=== PATIENT | male | born 1955 | race Caucasian/White ===

== ENCOUNTER 2025-02-09 13:45 | Outpatient (RCR) | payer OTHER, SELFPAY ==
--- NOTE | 2025-01-14 13:12 | ST.OPIE ---
Visit Care Team Role Provider Type Kimi Ash Attending Provider Non-Staff Family Provider Primary Care Provider Referring Provider Specialty: Internal Medicine Address: [address] [place], [address] Fax: Email: Speech-Language Pathology Initial Evaluation COMMERCIAL ACCOUNTANT Adult Cognitive Linguistic Eval Start: 01/14/25 12:29 Freq: Status: Active Protocol: Document 01/14/25 12:29 SS (Rec: 01/14/25 13:12 SS Desktop) Adult Cognitive Linguistic Evaluation Session Time Visit Start Time 11:35 Visit Stop Time 12:25 Total Visit Minutes 50 Visit Information Visit Number Initial evaluation Plan of Care Dates 01/14/25-04/16/25 Insurance Information [employer] PPO (max 100 PT/OT/ST) Referral Referring Provider Kimi Ash MD Reason for Referral s/p CVA Setting Assessment Location Outpatient Care Visit Type Note Type Initial evaluation Next Note Type Next Note Type Treatment Note Patient Information Identification Type Name Patient History Rodríguez Regan is a 69-year-old male, referred for a speech/ language/cognition evaluation by Kimi Ash MD due to concerns regarding symptoms of cognitive difficulty s/p CVA. Pt arrived to the evaluation on time and was accompanied by his spouse, Alysia. Pt was engaged throughout. No medical records available at time of evaluation. COMMERCIAL ACCOUNTANT to reach out to [employer] to obtain pertinent records. Pt reported he lives with his spouse. 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 He was hospitalized at [facility] for four days. A week following discharge, he was urged to return by his neurologist, d/t concerns about his blood pressure and further symptoms. Pt also has heart issues, though pt and spouse did not provide specifics. Pt and spouse reported cognitive- communication changes from baseline following CVA. 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 Pt and spouse cannot recall details. Subjective Patient Report Pt?s Observations/Concerns: Pt endorsed word-finding and memory difficulty. He endorsed becoming distracted easily when speaking or completing tasks. He denied difficulty understanding communication partners, however, endorses communication difficulty. He denied changes to voice or swallowing Family Observations/Concerns: Pt?s spouse reported that pt speaks less and the loudness of his speech varies, though is uncertain if this has increased since the CVA. She also reported difficulty with forgetting when appointments are, checking email regularly, and completing routine chores . Additionally, she expressed reduced initiation with baseline activities as well as increased dependence on her assistance for more complex cognitive tasks, such as financial specialist and running errands. 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 Utilizes pillbox. Handy Worker: independent, but makes occasional errors. Household Management: dependent on prompting from spouse. Reduced initiation with routine tasks. Driving: Spouse completes. Running Errands: with assistance from spouse due to executive function difficulties. Hobbies: reduced interest per spouse report. Mental Status Alert,Responsive,Cooperative Informal Assessment Receptive Language Normal Yes Expressive Language Normal Yes Pragmatic Language Normal Yes Speech Normal Yes Cognition Normal No Cognitive Impairment(s) Attention,Short-term memory, Executive functioning,Problem solving,Reasoning,Thought organization Formal Assessment Standardized Test/Screener Type Cognitive Linguistic Quick Test (CLQT) Administration Initiated Results The Cognitive Linguistic Quick Test (CLQT) was administered to obtain information regarding the pt?s cognitive abilities. The CLQT assesses five cognitive domains: attention, memory, executive functioning, language, and visuospatial skills. A domain and severity rating is calculated. Scores fall within a WNL and severe range describing a pt?s level of impairment. Additionally, a composite severity range is calculated. A score of 3.5-4. 0 is WNL, 2.5-3.4 is mild, 1.5 -2.4 is moderate, and 1.0-1.4 is severe. The CLQT was initiated on this date. The pt scored as follows: Personal Facts: 04/17 Symbol Cancelation: 08/21 Confrontation Namin/10 Clock Drawin/13 Story Retellin/10 Unable to provide domain and severity ratings or composite severity range as pt did not complete the full examination. Plan to complete full examination in following session. Pt displayed at least mild impairment in the memory domain. During the story memory task, the pt was read a story and asked to recall as many details as possible. He recalled 10/18 details. He required additional time to think during this task, with little to no improvement in recall. Pt was then asked yes/ no questions regarding the details in the story and responded to 5/6 accurately. He stated he was unsure of several of the responses and required additional time to think of the response. Pt exhibited WFL ability in the language domain. During the picture naming task, the he accurately named all items. Semantic fluency task, not completed yet. However, during unstructured conversation, he demonstrated frequent instances of anomia, which is consistent with his spouse?s report. Attention appeared to be WFL and pt did not appear to have difficulty with sustained attention during completed tasks. Alternating not yet assessed, though informally appeared reduced. 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 Pt is at elevated risk of making critical errors with tasks such as medication management, financial specialist, and completion of research specialist , as well as everyday tasks that require adequate skills in the areas of attention, immediate and delayed memory, and executive functioning. Pt? s spouse expresses that due to his cognitive-communication impairments, he has difficulty participating in baseline IADLs. Word-finding difficulty in conversation has impacted his communication with family, medical providers, and at the workplace. This has resulted in communication breakdowns at home and at the workplace. 1:[address] with the goal of providing therapeutic education and training in use of potentially beneficial cognitive- communication compensatory strategies, specifically targeting attention and immediate and delayed memory for improved safety and independence in the home and return to the workplace. Also recommend treatment targeting word-finding for improved communication with family, friends, and members of the medical team to prevent communication breakdowns. Pt may benefit from education and training in internal and external compensatory strategies for memory, training in Semantic Feature Analysis (SFA) for improved word-finding and use of compensatory strategy of circumlocution, and education in holistic lifestyle factors supported by research to have a positive impact on cognition . Prognosis for improvement is good due to pt motivation and strong support from the pt's family. Plan for pt to participate in ST skilled services addressing cognitive- communication at a frequency of 1x/week for 8-12 weeks, to be further informed once CLQT is completed. COMMERCIAL ACCOUNTANT provided education re: the role of the COMMERCIAL ACCOUNTANT in speech, language, and cognitive-communication therapy. Educated pt and family re: goals for therapy and facilitated discussion re: collaborative goals for treatment. Pt and spouse expressed understanding of education provided on this date. Concomitant Factors Concomitant Factors Other (comment) Comment Reduced awareness and initiation Prognosis Prognosis Good Based on Family support,Comorbidities Plan of Care Speech-Language Treatment Yes Frequency 1x/week Duration 2-3 months Patient/Caregiver Education Described results of evaluation,Patient expressed understanding of evaluation, Patient expressed agreement with goals and treatment plans ,Family/caregivers expressed understanding of evaluation, Family/caregivers expressed agreement with goals and treatment plan Short Term Goals 1. Patient will be educated about holistic lifestyle factors that are supported by research to have a positive impact on cognition (ex: sleep , exercise, diet, social engagement) and will demonstrate understanding via teach-back. 2. Patient will explore external compensatory strategies through education and application, in order to select 1-2 that are a best fit for daily needs (ex: calendar and writing lists). 3. Patient will participate in internal memory strategy (ex: visualization and rehearsal) education and training, in order to select 1-2 that are best fit for daily needs. 4. Patient will implement compensatory strategies for word-finding (such as circumlocution) with 80% accuracy with minimal cueing to repair communication breakdowns in daily conversations. 5. Patient will complete The Cognitive Linguistic Quick Test (CLQT) to further inform POC. Intermediate Goals 1. Patient will complete cognitive communication tasks with independent use of strategies or tools as needed to complete baseline tasks without difficulty. 2. Patient will demonstrate improved memory confidence, compared to baseline of 02/17, through memory education, adaptation, and application to real life.
--- NOTE | 2025-01-14 13:12 | ST.OPPOC ---
Physical, Occupational & Speech Therapy At [facility] Visit Care Team Role Provider Type Kimi Ash Attending Provider Non-Staff Family Provider Primary Care Provider Referring Provider Address: [place], [address] Fax: Speech Pathology Plan of Care Plan of Care Dates 01/14/25-04/16/25 Referring Provider Kimi Ash MD Patient History Rodríguez Regan is a 69-year-old male, referred for a speech/language/cognition evaluation by Kimi Ash MD due to concerns regarding symptoms of cognitive difficulty s/p CVA. Pt arrived to the evaluation on time and was accompanied by his spouse, Alysia. Pt was engaged throughout. No medical records available at time of evaluation. DENTAL EQUIPMENT TECHNICIAN to reach out to [employer] to obtain pertinent records. Pt reported he lives with his spouse. 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 He was hospitalized at [facility] for four days . A week following discharge, he was urged to return by his neurologist, d/t concerns about his blood pressure and further symptoms. Pt also has heart issues, though pt and spouse did not provide specifics. Pt and spouse reported cognitive-communication changes from baseline following CVA. Short Term Goals 1. Patient will be educated about holistic lifestyle factors that are supported by research to have a positive impact on cognition (ex: sleep, exercise, diet, social engagement) and will demonstrate understanding via teach-back. 2. Patient will explore external compensatory strategies through education and application, in order to select 1-2 that are a best fit for daily needs (ex: calendar and writing lists). 3. Patient will participate in internal memory strategy (ex: visualization and rehearsal) education and training, in order to select 1-2 that are best fit for daily needs. 4. Patient will implement compensatory strategies for word-finding (such as circumlocution) with 80% accuracy with minimal cueing to repair communication breakdowns in daily conversations. 5. Patient will complete The Cognitive Linguistic Quick Test (CLQT) to further inform POC. Manager Case Management Goals 1. Patient will complete cognitive communication tasks with independent use of strategies or tools as needed to complete baseline tasks without difficulty. 2. Patient will demonstrate improved memory confidence, compared to baseline of 02/17, through memory education, adaptation, and application to real life. Comment: Electronically Signed by: ABDI Bob 01/14/25 [id number] If you are in agreement with this Plan of Care, please return a signed and dated copy. I have reviewed this Plan of Care and certify that the skilled therapy services above are required to meet the patient?s needs. Physician Signature Date Printed Name and Credentials Clinical Instructor Signature Printed Name and Credentials
--- NOTE | 2025-01-14 13:57 | ST-OP ANOTE ---
Physical, Occupational & Speech Therapy At [facility] Speech Therapy Note POC sent to PCP, Kimi Ash MD, via [employer]Fax, requesting signature if in agreement.
--- NOTE | 2025-01-21 14:10 | ST.OPTN ---
Visit Care Team Role Provider Type Kimi Ash Attending Provider Non-Staff Family Provider Primary Care Provider Referring Provider Address: [address] [place], [address] Fax: ENTRY LEVEL ACCOUNTANT Treatment Note ENTRY LEVEL ACCOUNTANT Treatment Note Start: 01/14/25 12:29 Freq: Status: Active Protocol: Document 01/21/25 13:57 SS (Rec: 01/21/25 14:10 SS Desktop) Speech Pathology Treatment Note Session Time Visit Start Time 11:30 Visit Stop Time 12:15 Total Visit Minutes 45 Visit Information Visit Number 2 Plan of Care Dates 01/14/25-04/16/[address] [facility] Setting Treatment Setting Outpatient Care Visit Type Note Type Treatment Note Next Note Type Next Note Type Treatment Note General Information Patient History Rodríguez Regan is a 69-year-old male, referred for a speech/ language/cognition evaluation by Kimi Ash MD due to concerns regarding symptoms of cognitive difficulty s/p CVA. Pt arrived to the evaluation on time and was accompanied by his spouse, Alysia. Pt was engaged throughout. No medical records available at time of evaluation. ENTRY LEVEL ACCOUNTANT to reach out to [facility] to obtain pertinent records. Pt reported he lives with his spouse. 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 He was hospitalized at [facility] for four days. A week following discharge, he was urged to return by his neurologist, d/t concerns about his blood pressure and further symptoms. Pt also has heart issues, though pt and spouse did not provide specifics. Pt and spouse reported cognitive- communication changes from baseline following CVA. Subjective Observations/Patient Presentation Rodríguez arrived to the session on time and was accompanied by his . He was engaged and motivated throughout the session. Objective Short Term Goals 1. Patient will be educated about holistic lifestyle factors that are supported by research to have a positive impact on cognition (ex: sleep , exercise, diet, social engagement) and will demonstrate understanding via teach-back. 2. Patient will explore external compensatory strategies through education and application, in order to select 1-2 that are a best fit for daily needs (ex: calendar and writing lists). 3. Patient will participate in internal memory strategy (ex: visualization and rehearsal) education and training, in order to select 1-2 that are best fit for daily needs. 4. Patient will implement compensatory strategies for word-finding (such as circumlocution) with 80% accuracy with minimal cueing to repair communication breakdowns in daily conversations. 5. Patient will complete The Cognitive Linguistic Quick Test (CLQT) to further inform POC. Shift Engineer Goals 1. Patient will complete cognitive communication tasks with independent use of strategies or tools as needed to complete baseline tasks without difficulty. 2. Patient will demonstrate improved memory confidence, compared to baseline of 02/17, through memory education, adaptation, and application to real life. Treatment Activities Completed The Cognitive Linguistic Quick Test (CLQT). Discussed communication strategies and external aids for memory at the end of the session. Pt provided an FMLA form for ENTRY LEVEL ACCOUNTANT to complete and return at next session. Assessment Patient Response to Treatment Good Rehab Potential Good Impairments Identified Cognitive communication Progress Towards Goals Good Progress Assessment of Overall Progress Improving Assessment of Improvement Pt completed the CLQT, which was initiated during the evaluation. He scored as follows: Attention: 173 Mild impairment Memory: 159 WNL Executive Functions: 22 Mild impairment Visuospatial Skills: 78 Mild impairment Clock Drawin Mild impairment Composite Severity Range: 3.4 Mild cognitive-communication impairment Towards the end of the session , ENTRY LEVEL ACCOUNTANT facilitated discussion re: current observations and concerns by pt and his spouse. Pt expressed he had no particular concerns, though his awareness of his own deficits appears to be limited based on spouse reports. His spouse expressed that his processing time, particularly during conversations in-person or on the phone, appears to be delayed. Additionally, he often perseverated on particular things he cannot remember, such as time of appointments and to-do tasks. In conversation, recommended pt confirm information he hears to ensure accurate comprehension as well as take notes as he is able to follow the conversation flow better. Also discussed use of self- advocacy statement and prefacing conversations with brief explanation of CVA history and need for listener to slow down and be patient. Pt expressed understanding and his spouse explained she will try to remind him to utilize these strategies. Additionally , recommended pt refer to calendar when he is unsure of time/date of appointments and begin to use of daily to-do list. Pt?s spouse was highly supportive of pt beginning to use these strategies and wrote them down for improved recall . Plan to discuss assessment results and follow up on use of recommended tools and strategies in next session. Continue at frequency of once a week given pt progress and report. Reviewed with Patient Goals,Home Exercise Program Patient/Caregiver Understanding Good Plan Amount of Therapy Recommended 3 Months Frequency of Treatment Once a Week Length of Session 30 Minutes Therapeutic Contents Client Education,Cognitive- Linguistic Training,Home Exercise Program Provided Patient/Caregiver Instruction Home Exercise Program,Plan of Care,Questions/Concerns Therapy Recommendations Continue with Current Program
--- NOTE | 2025-01-26 16:11 | ST.OPTN ---
Visit Care Team Role Provider Type Kimi Ash Attending Provider Non-Staff Family Provider Primary Care Provider Referring Provider Address: [address] [place], [address] Fax: BODY MASKER Treatment Note BODY MASKER Treatment Note Start: 01/14/25 12:29 Freq: Status: Active Protocol: Document 01/26/25 16:02 SS (Rec: 01/26/25 16:11 SS Desktop) Speech Pathology Treatment Note Session Time Visit Start Time 13:45 Visit Stop Time 14:30 Total Visit Minutes 45 Visit Information Visit Number 3 Plan of Care Dates 01/14/25-04/16/25 Insurance Information [facility] Setting Treatment Setting Outpatient Care Visit Type Note Type Treatment Note Next Note Type Next Note Type Treatment Note General Information Patient History Rodríguez Regan is a 69-year-old male, referred for a speech/ language/cognition evaluation by Kimi Ash MD due to concerns regarding symptoms of cognitive difficulty s/p CVA. Pt arrived to the evaluation on time and was accompanied by his spouse, Alysia. Pt was engaged throughout. No medical records available at time of evaluation. BODY MASKER to reach out to [facility] to obtain pertinent records. Pt reported he lives with his spouse. 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 He was hospitalized at [facility] for four days. A week following discharge, he was urged to return by his neurologist, d/t concerns about his blood pressure and further symptoms. Pt also has heart issues, though pt and spouse did not provide specifics. Pt and spouse reported cognitive- communication changes from baseline following CVA. Subjective Observations/Patient Presentation Rodríguez arrived to the session on time and was accompanied by his . She was present for part of the session. He was engaged and motivated throughout the session. Objective Short Term Goals 1. Patient will be educated about holistic lifestyle factors that are supported by research to have a positive impact on cognition (ex: sleep , exercise, diet, social engagement) and will demonstrate understanding via teach-back. 2. Patient will explore external compensatory strategies through education and application, in order to select 1-2 that are a best fit for daily needs (ex: calendar and writing lists). 3. Patient will participate in internal memory strategy (ex: visualization and rehearsal) education and training, in order to select 1-2 that are best fit for daily needs. 4. Patient will implement compensatory strategies for word-finding (such as circumlocution) with 80% accuracy with minimal cueing to repair communication breakdowns in daily conversations. 5. Patient will complete The Cognitive Linguistic Quick Test (CLQT) to further inform POC. Group Home Goals 1. Patient will complete cognitive communication tasks with independent use of strategies or tools as needed to complete baseline tasks without difficulty. 2. Patient will demonstrate improved memory confidence, compared to baseline of 02/17, through memory education, adaptation, and application to real life. Treatment Activities Completed [facility] paperwork as requested by pt. Provided education re: attention and executive functioning compensatory strategies during IADLs. Provided handouts with further education Assessment Patient Response to Treatment Good Rehab Potential Good Impairments Identified Cognitive communication Progress Towards Goals Good Progress Assessment of Overall Progress Improving Assessment of Improvement Facilitated discussion re: pt observations and concerns. Pt reported remaining concerns during tasks that he used to be able to complete easily, such as fixing household appliances. BODY MASKER discussed the following strategies with pt: reducing environmental distractions, reducing internal distractions, pacing and taking breaks, breaking down larger tasks into manageable parts and writing steps down. Pt expressed understanding and stated he will implement these strategies. Additionally, recommended modifying an activity so that it takes less energy, postponing an activity to another day, delegating one or more activities to someone else ( friend, family, delivery, or other paid help), and prioritizing tasks. Discussed importance of managing cognitive capacity, particularly with cognitively taxing and demanding tasks. Pt expressed understanding and stated he will report on progress in next session. BODY MASKER facilitated discussion re: role of attention with metaphor of blocks in the brain being available for storage of new information; however, if individual is not attending to information, it will never be stored and won't be easily retrieved at later time. Additionally, BODY MASKER facilitated discussion re: impact of mental health, distractions, stress, and fatigue on cognitive function with metaphor of external factors filling the blocks in your brain that you'd otherwise have open for new information. Plan to continue targeting attention, memory, and executive functioning strategies in next session. Introduce spoon theory if pt receptive. Continue at frequency of once a week given pt progress and report. Reviewed with Patient Goals,Home Exercise Program Patient/Caregiver Understanding Good Plan Amount of Therapy Recommended 3 Months Frequency of Treatment Once a Week Length of Session 30 Minutes Therapeutic Contents Client Education,Cognitive- Linguistic Training,Home Exercise Program Provided Patient/Caregiver Instruction Home Exercise Program,Plan of Care,Questions/Concerns Therapy Recommendations Continue with Current Program
--- NOTE | 2025-02-06 15:46 | ST.OPTN ---
Visit Care Team Role Provider Type Kimi Ash Attending Provider Non-Staff Family Provider Primary Care Provider Referring Provider Address: [address] [place], [address] Fax: POTTER OR CERAMIC ARTIST Treatment Note POTTER OR CERAMIC ARTIST Treatment Note Start: 01/14/25 12:29 Freq: Status: Active Protocol: Document 02/06/25 15:33 SS (Rec: 02/06/25 15:46 SS Desktop) Speech Pathology Treatment Note Session Time Visit Start Time 11:30 Visit Stop Time 12:05 Total Visit Minutes 35 Visit Information Visit Number 4 Plan of Care Dates 01/14/25-04/16/25 Insurance Information [facility] Setting Treatment Setting Outpatient Care Visit Type Note Type Treatment Note Next Note Type Next Note Type Treatment Note General Information Patient History Rodríguez Regan is a 69-year-old male, referred for a speech/ language/cognition evaluation by Kimi Ash MD due to concerns regarding symptoms of cognitive difficulty s/p CVA. Pt arrived to the evaluation on time and was accompanied by his spouse, Alysia. Pt was engaged throughout. No medical records available at time of evaluation. POTTER OR CERAMIC ARTIST to reach out to [facility] to obtain pertinent records. Pt reported he lives with his spouse. 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 He was hospitalized at [facility] for four days. A week following discharge, he was urged to return by his neurologist, d/t concerns about his blood pressure and further symptoms. Pt also has heart issues, though pt and spouse did not provide specifics. Pt and spouse reported cognitive- communication changes from baseline following CVA. Subjective Observations/Patient Presentation Rodríguez arrived to the session on time and was accompanied by his who accompanied him. He was engaged and motivated throughout the session. Objective Short Term Goals 1. Patient will be educated about holistic lifestyle factors that are supported by research to have a positive impact on cognition (ex: sleep , exercise, diet, social engagement) and will demonstrate understanding via teach-back. 2. Patient will explore external compensatory strategies through education and application, in order to select 1-2 that are a best fit for daily needs (ex: calendar and writing lists). 3. Patient will participate in internal memory strategy (ex: visualization and rehearsal) education and training, in order to select 1-2 that are best fit for daily needs. 4. Patient will implement compensatory strategies for word-finding (such as circumlocution) with 80% accuracy with minimal cueing to repair communication breakdowns in daily conversations. 5. Patient will complete The Cognitive Linguistic Quick Test (CLQT) to further inform POC. [facility] Goals 1. Patient will complete cognitive communication tasks with independent use of strategies or tools as needed to complete baseline tasks without difficulty. 2. Patient will demonstrate improved memory confidence, compared to baseline of 02/17, through memory education, adaptation, and application to real life. Treatment Activities Provided education re: holistic lifestyle factors that are supported by research to have a positive impact on cognition (ex: sleep, exercise , diet, social engagement) as well as impact of stress on cognitive function. Reviewed use of communication strategies to increase successful participation in conversations. Assessment Patient Response to Treatment Good Rehab Potential Good Impairments Identified Cognitive communication Progress Towards Goals Good Progress Assessment of Overall Progress Improving Assessment of Improvement Pt?s expressed some concerns about impact of upcoming open-heart surgery on overall cognitive function. POTTER OR CERAMIC ARTIST provided lifestyle education re: physical activity, social activity, sleep habits, hearing ability, hydration, and diet, and impacts on overall cognitive function. Specifically discussed benefits of good sleep habits, current sleep habits, and identified situations and ways that pt could change his sleep routine . Pt stated he is motivated to implement POTTER OR CERAMIC ARTIST recommendations . Given hearing concerns and pt not wearing hearing aids, explained benefits of adequate hearing ability and discussed how pt could address his hearing ability. Pt?s stated she will make an client care manager appointment following his surgery. Discussed implementation of strategies during cognitively demanding conversations (e.g., phone calls with medical providers). Pt expressed that he is now using a self- advocacy statement previously created with this POTTER OR CERAMIC ARTIST to explain his situation to less familiar communication partners. He has also been cognizant of asking communication partners to slow down or rephrase if he does not understand. He has started taking noted during conversations to improve recall, though admits he could do so more consistently and reference his notes after the conversation. Recommended pt reduce external distractions ( noise, multiple people speaking, etc) and external distractions. Also recommended pt try to have important conversations when he is minimally fatigued and stressed to increase effectiveness. Pt agreeable to these recommendations and will report ton progress in next session. Plan to continue targeting attention, memory, executive functioning, and communication strategies in next session. Continue at frequency of once a week given pt progress and report. Plan to discharge next session as pt will be having extensive surgery. Reviewed with Patient Goals,Home Exercise Program Patient/Caregiver Understanding Good Plan Amount of Therapy Recommended 3 Months Frequency of Treatment Once a Week Length of Session 30 Minutes Therapeutic Contents Client Education,Cognitive- Linguistic Training,Home Exercise Program Provided Patient/Caregiver Instruction Home Exercise Program,Plan of Care,Questions/Concerns Therapy Recommendations Continue with Current Program
--- NOTE | 2025-02-09 17:04 | ST.OPTN ---
Visit Care Team Role Provider Type Kimi Ash Attending Provider Non-Staff Family Provider Primary Care Provider Referring Provider Address: [address] [place], [address] Fax: YARD CONDUCTOR Treatment Note YARD CONDUCTOR Treatment Note Start: 01/14/25 12:29 Freq: Status: Active Protocol: Document 02/09/25 16:48 SS (Rec: 02/09/25 17:04 SS Desktop) Speech Pathology Treatment Note Session Time Visit Start Time 13:50 Visit Stop Time 14:20 Total Visit Minutes 30 Visit Information Visit Number 5 Plan of Care Dates 01/14/25-04/16/25 Insurance Information [facility] Setting Treatment Setting Outpatient Care Visit Type Note Type Treatment Note Next Note Type Next Note Type Discharge Summary General Information Patient History Rodríguez Regan is a 69-year-old male, referred for a speech/ language/cognition evaluation by Kimi Ash MD due to concerns regarding symptoms of cognitive difficulty s/p CVA. Pt arrived to the evaluation on time and was accompanied by his spouse, Alysia. Pt was engaged throughout. No medical records available at time of evaluation. YARD CONDUCTOR to reach out to [facility] to obtain pertinent records. Pt reported he lives with his spouse. 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 He was hospitalized at [facility] for four days. A week following discharge, he was urged to return by his neurologist, d/t concerns about his blood pressure and further symptoms. Pt also has heart issues, though pt and spouse did not provide specifics. Pt and spouse reported cognitive- communication changes from baseline following CVA. Subjective Observations/Patient Presentation Rodríguez arrived to the session on time and was accompanied by his who accompanied him. He was engaged and motivated throughout the session. Objective Short Term Goals 1. Patient will be educated about holistic lifestyle factors that are supported by research to have a positive impact on cognition (ex: sleep , exercise, diet, social engagement) and will demonstrate understanding via teach-back. 02/09/25: Goal met. 2. Patient will explore external compensatory strategies through education and application, in order to select 1-2 that are a best fit for daily needs (ex: calendar and writing lists). 02/09/25: Goal met. 3. Patient will participate in internal memory strategy (ex: visualization and rehearsal) education and training, in order to select 1-2 that are best fit for daily needs. 02/09/25: Goal discontinued. 4. Patient will implement compensatory strategies for word-finding (such as circumlocution) with 80% accuracy with minimal cueing to repair communication breakdowns in daily conversations. 02/09/25: Goal met. 5. Patient will complete The Cognitive Linguistic Quick Test (CLQT) to further inform POC. 02/09/25: Goal met. [facility] Goals 1. Patient will complete cognitive communication tasks with independent use of strategies or tools as needed to complete baseline tasks without difficulty. 02/09/25: Goal met. 2. Patient will demonstrate improved memory confidence, compared to baseline of 02/17, through memory education, adaptation, and application to real life. 02/09/25: Goal met. Treatment Activities Continued education re: external memory aids to increase independence and reduce errors with completion of IADLs. Reviewed use of communication strategies to increase successful participation in conversations . Discussed progress to date and completed discharge. Assessment Patient Response to Treatment Good Rehab Potential Good Impairments Identified Cognitive communication Progress Towards Goals Good Progress,Appropriate for Discharge Assessment of Overall Progress Improving Assessment of Improvement YARD CONDUCTOR facilitated discussion re: current observations and concerns. Pt reported he continues to implement previously trained communication strategies. He reported no communication breakdowns since the last session. He reported minimal word-finding difficulty, which was consistent with YARD CONDUCTOR?s observations. Reviewed word- finding strategies for pt to utilize as needed. Additionally, reviewed previously recommended external memory aids, such as use of calendar, daily to-do list, and taking notes during important phone calls and conversations. Pt expressed understanding of these strategies, though appears reluctant to implement them. He stated, ?I ask God what to do every day, and then I do it .? His spouse stated that pt appears to have reduced motivation/initiation with household tasks. She also reported perceived changes to hygiene and difficulty taking medications appropriately at times. Given that this is the pt?s last session before undergoing open heart surgery, YARD CONDUCTOR to discharge pt. Recommended he obtain a new referral as needed from PCP after he recovers from surgery if he would like to pursue further outpatient services, which he was agreeable to. Pt has been seen for 5 speech therapy visits addressing cognitive-communication in the setting of CVA since the start of care 01/14. He has attended at a frequency of once a week and has been motivated and engaged throughout. Treatment has included lifestyle education re: physical activity, social activity, sleep habits, hearing ability, hydration, and diet, and impacts on overall cognitive function. Pt was able to identify situations and ways that he could change and modify to optimize current habits. Additionally, treatment has included compensatory strategies targeting communication, word-finding, memory, and executive functioning. Pt has been able to implement multiple strategies effectively, though progress limited given short duration of treatment. Since the start of care, pt has improved in self-perception of cognitive-communication to a current perception of 8/10. He is able to complete more baseline IADLs independently, but continues to require e assistance from his spouse. The plan is to discharge the patient from speech therapy services due to upcoming extensive surgery and anticipated recovery. Recommend he request a referral from his PCP if he continues to note difficulties with cognitive-communication function. Pt agreeable to plan . Reviewed with Patient Goals,Home Exercise Program Patient/Caregiver Understanding Good Plan Amount of Therapy Recommended No Further Therapy Frequency of Treatment No Further Therapy Therapeutic Contents Client Education,Cognitive- Linguistic Training,Home Exercise Program Provided Patient/Caregiver Instruction Home Exercise Program,Plan of Care,Questions/Concerns Therapy Recommendations Discharge to Home Exercise Program,Discharge from Speech Therapy
== END 2025-02-10 10:13 | disposition home or self-care (01) ==
LOC: SP 13:45
PROVIDERS: Family Provider Internal Medicine; PCP Internal Medicine; Referring Provider Internal Medicine; Visit Provider Internal Medicine
DX: I69.328 Other speech and language deficits following cerebral infarction (principal); I69.398 Other sequelae of cerebral infarction
CPT/HCPCS: 92507; 96125

== ENCOUNTER 2025-04-28 13:45 | Outpatient (RCR) | payer OTHER, SELFPAY ==
--- NOTE | 2025-04-10 16:41 | ST.OPIE ---
Visit Care Team Role Provider Type Kimi Ash Family Provider Non-Staff Primary Care Provider Specialty: Internal Medicine Address: [address] [place], [address] Fax: Email: Sylvia Del Rio DO Attending Provider Non-Staff Referring Provider Specialty: Psychiatry Address: [address] [place], [address] Email: Speech-Language Pathology Initial Evaluation TECHNOLOGY DEVELOPMENT INTERN Adult Cognitive Linguistic Eval Start: 04/10/25 16:16 Freq: Status: Active Protocol: Document 04/10/25 16:17 SS (Rec: 04/10/25 16:41 SS Desktop) Adult Cognitive Linguistic Evaluation Session Time Visit Start Time 14:40 Visit Stop Time 15:20 Total Visit Minutes 40 Visit Information Visit Number Initial evaluation Plan of Care Dates 04/10/25-07/11/25 [facility] Information Referral Referring Provider Sylvia Del Rio DO Reason for Referral s/p CVA Setting Assessment Location Outpatient Care Visit Type Note Type Initial evaluation Next Note Type Next Note Type Treatment Note Patient Information Identification Type Name Patient History Pt was previously seen by this TECHNOLOGY DEVELOPMENT INTERN from 01/14/25 to . 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 Per prior evaluation: ?Rodríguez Regan is a 69-year-old male, referred for a speech/language/cognition evaluation by Kmii Ash MD due to concerns regarding symptoms of cognitive difficulty s/p CVA. Pt arrived to the evaluation on time and was accompanied by his spouse, Alysia. Pt was engaged throughout. No medical records available at time of evaluation. TECHNOLOGY DEVELOPMENT INTERN to reach out to [facility] to obtain pertinent records. Pt reported he lives with his spouse. 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 He was hospitalized at [facility] for four days. A week following discharge, he was urged to return by his neurologist, d /t concerns about his blood pressure and further symptoms. Pt also has heart issues, though pt and spouse did not provide specifics. Pt and spouse reported cognitive- communication changes from baseline following CVA.? 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 Pt and spouse cannot recall details. Subjective Patient Report Today, pt reported ongoing difficulty understanding others during complex conversations and on the phone. He also expressed reduced processing speed and short- term memory difficulties. He is completing IADLs independently and shares household responsibilities with is spouse. Pt did not pass his driving assessment with OT due to slowed visual and processing speed. He currently has a referral in place for OT. Mental Status Alert,Responsive,Cooperative Informal Assessment Receptive Language No Normal Receptive Language Comprehension of conversation Impairment(s) Expressive Language Yes Normal Pragmatic Language Yes Normal Speech Normal Yes Cognition Normal No Cognitive Impairment Attention,Short-term memory (s) Formal Assessment Standardized Test/ Cognitive Linguistic Quick Test (CLQT) Screener Type Administration Complete Results The Cognitive Linguistic Quick Test (CLQT) was administered to obtain information regarding the pt?s cognitive abilities. The CLQT assesses five cognitive domains: attention, memory, executive functioning, language, and visuospatial skills. A domain and severity rating is calculated. Scores fall within a WNL and severe range describing a pt?s level of impairment. Additionally, a composite severity range is calculated. A score of 3.5- 4.0 is WNL, 2.5-3.4 is mild, 1.5-2.4 is moderate, and 1 .0-1.4 is severe. The pt scored as follows: Attention: 186 within normal limits Memory: 171 within normal limits Executive Functions: 25 within normal limits Language: 33 within normal limits Visuospatial Skills: 84 within normal limits Clock Drawin within normal limits Composite Severity Ratin.0 within normal limits Findings/Results Language Function Within functional limits Cognitive Function Within functional limits Findings Given informal assessment and results from CLQT, the pt presents with within functional levels cognitive- communication function. Given pt report of difficulties with comprehension of information during phone conversations and short-term memory recall, pt will benefit from 1:[address] with the goal of providing therapeutic education and training in use of beneficial cognitive-communication compensatory strategies, specifically targeting attention and immediate and delayed memory for improved safety and independence in the home. Also recommend treatment targeting compensatory strategies for communication with family, friends, and members of the medical team to prevent communication breakdowns and increase comprehension. Prognosis for improvement is good due to pt motivation and strong support from the pt's family. Plan for pt to participate in skilled services addressing cognitive-communication at a frequency of 1x /week for 1-2 months. TECHNOLOGY DEVELOPMENT INTERN provided education re: the role of the TECHNOLOGY DEVELOPMENT INTERN in speech, language, and cognitive- communication therapy. Educated pt re: goals for therapy and facilitated discussion re: collaborative goals for treatment. Pt expressed understanding of education provided on this date. Plan to complete a patient reported outcome measure, such as The Communicative Participation Item Bank or Multifactorial Memory Questionnaire for better insight into pt's perception of his cognitive-communication challenges. Prognosis Prognosis Good Based on Cognitive status,Family support Plan of Care Speech-Language Yes Treatment Frequency 1x/week Duration 1-2 months Patient/Caregiver Described results of evaluation,Patient expressed Education understanding of evaluation,Patient expressed agreement with goals and treatment plans,Family/caregivers expressed understanding of evaluation,Family/caregivers expressed agreement with goals and treatment plan Short Term Goals 1. Patient will be educated about holistic lifestyle factors that are supported by research to have a positive impact on cognition (ex: sleep, exercise, diet , social engagement). 2. Patient will implement 2 new internal/external compensatory strategies for memory with successful results, per home program report. 3. Patient will increase metacognitive self-awareness as measured by accurately reflecting on task performance after completion in 90% of opportunities in order to increase insight and safety awareness. 4. Patient and family will receive education re: communication strategies and communication partner training and ways to support communication in order to improve pt ability to communicate needs and wants and understand complex information. Fpc Goals 1. Patient will complete cognitive communication tasks with independent use of strategies or tools as needed to complete baseline tasks without difficulty.
--- NOTE | 2025-04-10 16:41 | ST.OPPOC ---
Physical, Occupational & Speech Therapy At [facility] Visit Care Team Role Provider Type Kimi Ash Family Provider Non-Staff Primary Care Provider Address: [address] [place], [address] Fax: Sylvia Del Rio DO Attending Provider Non-Staff Referring Provider Address: [address] [place], [address] Speech Pathology Plan of Care Plan of Care Dates 04/10/25-07/11/25 Referring Provider Sylvia Del Rio DO Patient History Pt was previously seen by this DIRECTOR MEDICAL SURGICAL from 01/14/25 to 02/09/25. 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 Per prior evaluation: ?Rodríguez Regan is a 69-year-old male, referred for a speech/ language/cognition evaluation by Kimi Ash MD due to concerns regarding symptoms of cognitive difficulty s/p CVA. Pt arrived to the evaluation on time and was accompanied by his spouse, Alysia. Pt was engaged throughout. No medical records available at time of evaluation . DIRECTOR MEDICAL SURGICAL to reach out to [facility] to obtain pertinent records. Pt reported he lives with his spouse. 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 He was hospitalized at [facility] for four days. A week following discharge, he was urged to return by his neurologist, d/t concerns about his blood pressure and further symptoms. Pt also has heart issues, though pt and spouse did not provide specifics. Pt and spouse reported cognitive- communication changes from baseline following CVA.? Short Term Goals 1. Patient will be educated about holistic lifestyle factors that are supported by research to have a positive impact on cognition (ex: sleep, exercise, diet, social engagement). 2. Patient will implement 2 new internal/ external compensatory strategies for memory with successful results, per home program report. 3. Patient will increase metacognitive self- awareness as measured by accurately reflecting on task performance after completion in 90% of opportunities in order to increase insight and safety awareness. 4. Patient and family will receive education re: communication strategies and communication partner training and ways to support communication in order to improve pt ability to communicate needs and wants and understand complex information. Detention Goals 1. Patient will complete cognitive communication tasks with independent use of strategies or tools as needed to complete baseline tasks without difficulty. Comment: Electronically Signed by: ABDI Bob 04/10/25 [id number] If you are in agreement with this Plan of Care, please return a signed and dated copy. I have reviewed this Plan of Care and certify that the skilled therapy services above are required to meet the patient?s needs. Physician Signature Date Printed Name and Credentials Clinical Instructor Signature Printed Name and Credentials
--- NOTE | 2025-04-10 16:44 | ST-OP ANOTE ---
Physical, Occupational & Speech Therapy At [facility] Speech Therapy Note METAL STAMPER sent POC to referring provider, Sylvia Del Rio DO, via [employer]ax. Requested signature if in agreement.
--- NOTE | 2025-04-14 16:00 | ST.OPTN ---
Visit Care Team Role Provider Type Kimi Ash Family Provider Non-Staff Primary Care Provider Address: [address] [place], [address] Fax: Sylvia Del Rio DO Attending Provider Non-Staff Referring Provider Address: [address] [place], [address] STRATEGIC ACCOUNT EXECUTIVE Treatment Note STRATEGIC ACCOUNT EXECUTIVE Treatment Note Start: 04/10/25 16:16 Freq: Status: Active Protocol: Document 04/14/25 13:37 SS (Rec: 04/14/25 13:44 SS Desktop) Speech Pathology Treatment Note Session Time Visit Start Time 11:25 Visit Stop Time 12:00 Total Visit Minutes 35 Visit Information Visit Number 2 Plan of Care Dates 04/10/25-07/11/25 Insurance [facility] (max 100 PT/OT/ST) Information Setting Treatment Setting Outpatient Care Visit Type Note Type Treatment Note Next Note Type Next Note Type Treatment Note General Information Patient History Pt was previously seen by this STRATEGIC ACCOUNT EXECUTIVE from 01/14/25 to . 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 Per prior evaluation: ?Rodríguez Regan is a 69-year-old male, referred for a speech/language/cognition evaluation by Kimi Ash MD due to concerns regarding symptoms of cognitive difficulty s/p CVA. Pt arrived to the evaluation on time and was accompanied by his spouse, Alysia. Pt was engaged throughout. No medical records available at time of evaluation. STRATEGIC ACCOUNT EXECUTIVE to reach out to [employer] to obtain pertinent records. Pt reported he lives with his spouse. 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 He was hospitalized at [facility] for four days. A week following discharge, he was urged to return by his neurologist, d /t concerns about his blood pressure and further symptoms. Pt also has heart issues, though pt and spouse did not provide specifics. Pt and spouse reported cognitive- communication changes from baseline following CVA.? Subjective Identification Type Name Others Present Family Observations/Patient Pt arrived to the session on time and was accompanied Presentation by his spouse. He was engaged and motivated throughout the session. Objective Short Term Goals 1. Patient will be educated about holistic lifestyle factors that are supported by research to have a positive impact on cognition (ex: sleep, exercise, diet , social engagement). 2. Patient will implement 2 new internal/external compensatory strategies for memory with successful results, per home program report. 3. Patient will increase metacognitive self-awareness as measured by accurately reflecting on task performance after completion in 90% of opportunities in order to increase insight and safety awareness. 4. Patient and family will receive education re: communication strategies and communication partner training and ways to support communication in order to improve pt ability to communicate needs and wants and understand complex information. Reimbursement Auditor Goals 1. Patient will complete cognitive communication tasks with independent use of strategies or tools as needed to complete baseline tasks without difficulty. Treatment Activities Provided education re: CLQT results. Implemented communication strategies given increased response latency. Implemented Wpgq-Yfdi-Lu-Review targeting initiation and motivation with IADLs. Discussed progress and provided home practice. Assessment Assessment of STRATEGIC ACCOUNT EXECUTIVE provided verbal education re: test results from the Improvement assessment session, strengths, weakness, how tests are used (to compare performance of those with similar ages and education levels without brain injury to patient?s current function status post CVA). Pt expressed understanding of results and expressed relief at his scores. STRATEGIC ACCOUNT EXECUTIVE provided education re: communication strategies as pt?s spouse reported increased latency time in conversation. Given discussion with pt and spouse, they selected the following strategies to begin implementing: Sending a message ? stating main idea first, saying ?you?re close? to confirm, saying start over to correct wrong info. Receiving a message - repeating Back, asking main idea first, giving time to respond, summarizing information, and speaking face-to- face. Pt and spouse expressed understanding. They were able to practice these strategies in conversation with STRATEGIC ACCOUNT EXECUTIVE providing occasional cueing for them to utilize specific strategies. Recommended they begin implementing these strategies at home to minimize communication breakdowns, which pt and spouse were agreeable with. Zvsy-Sxfw-Sy-Review framework was initiated given pt report of difficulty initiating IADLs to train a process that improves problem-solving, attention, organization, and self-monitoring. Goal setting: Pt was able to identify a goal given initial prompt. He benefited from cueing to identify a time to complete the goal and the duration of completion. Plan Making: the pt required min goals to accurately list the steps to complete the goal. He identified the materials needed for the plan following initial prompt. Reviewed Doing the Plan and Reviewing the Plan steps for pt to complete at home. Recommended he complete the framework for the goal he had selected prior to next session ad report on his progress next session. Pt was agreeable to this recommendation. Pt was receptive to STRATEGIC ACCOUNT EXECUTIVE recommendations today and expressed understanding of education. Plan to continue targeting communication strategies as well as compensatory strategies for executive functioning. Continue at frequency of once a week given pt progress and report. Reviewed with Progress Being Made,Home Exercise Program Patient Patient/Caregiver Excellent Understanding Plan Amount of Therapy 1-2 Months Recommended Frequency of Once a Week Treatment Length of Session 30 Minutes Therapeutic Contents Client Education,Cognitive-Linguistic Training,Home Exercise Program Provided Patient/ Home Exercise Program,Questions/Concerns Caregiver Instruction Therapy Continue with Current Program Recommendations
--- NOTE | 2025-04-20 13:39 | ST.OPTN ---
Visit Care Team Role Provider Type Kimi Ash Family Provider Non-Staff Primary Care Provider Address: [address] [place], [address] Fax: Sylvia Del Rio DO Attending Provider Non-Staff Referring Provider Address: [address] [place], [address] CLIENT ADMINISTRATOR Treatment Note CLIENT ADMINISTRATOR Treatment Note Start: 04/10/25 16:16 Freq: Status: Active Protocol: Document 04/20/25 13:29 SS (Rec: 04/20/25 13:39 SS Desktop) Speech Pathology Treatment Note Session Time Visit Start Time 09:55 Visit Stop Time 10:25 Total Visit Minutes 30 Visit Information Visit Number 3 Plan of Care Dates 04/10/25-07/11/25 Insurance [facility] (max 100 PT/OT/ST) Information Setting Treatment Setting Outpatient Care Visit Type Note Type Treatment Note Next Note Type Next Note Type Treatment Note General Information Patient History Pt was previously seen by this CLIENT ADMINISTRATOR from 01/14/25 to . 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 Per prior evaluation: ?Rodríguez Regan is a 69-year-old male, referred for a speech/language/cognition evaluation by Kimi Ash MD due to concerns regarding symptoms of cognitive difficulty s/p CVA. Pt arrived to the evaluation on time and was accompanied by his spouse, Alysia. Pt was engaged throughout. No medical records available at time of evaluation. CLIENT ADMINISTRATOR to reach out to [facility] to obtain pertinent records. Pt reported he lives with his spouse. 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 He was hospitalized at [facility] for four days. A week following discharge, he was urged to return by his neurologist, d /t concerns about his blood pressure and further symptoms. Pt also has heart issues, though pt and spouse did not provide specifics. Pt and spouse reported cognitive- communication changes from baseline following CVA.? Subjective Identification Type Name Others Present Family Observations/Patient Pt arrived to the session late and was accompanied by Presentation his spouse. He was engaged and motivated throughout the session. Objective Short Term Goals 1. Patient will be educated about holistic lifestyle factors that are supported by research to have a positive impact on cognition (ex: sleep, exercise, diet , social engagement). 2. Patient will implement 2 new internal/external compensatory strategies for memory with successful results, per home program report. 3. Patient will increase metacognitive self-awareness as measured by accurately reflecting on task performance after completion in 90% of opportunities in order to increase insight and safety awareness. 4. Patient and family will receive education re: communication strategies and communication partner training and ways to support communication in order to improve pt ability to communicate needs and wants and understand complex information. Power Operator Goals 1. Patient will complete cognitive communication tasks with independent use of strategies or tools as needed to complete baseline tasks without difficulty. Treatment Activities Reviewed use of Jtse-Nqkc-Oh-Review framework targeting initiation and motivation with IADLs. Voicemail task targeting comprehension and short-term recall of complex information. Discussed progress and provided home practice. Assessment Patient Response to Good Treatment Rehab Potential Good Impairments Cognitive communication Identified Progress Towards Good Progress Goals Assessment of Improving Overall Progress Assessment of CLIENT ADMINISTRATOR facilitated discussion re: pt observations and Improvement concerns since the last treatment session. Pt and spouse expressed they have been more cognizant of implementing communication strategies as educated in last session. Pt reported their communication has been more effective. Pt expressed he has found the Goal-Plan -Do-Review framework to be very helpful, but has not been able to complete it due to other prioritizes in the past week. He was able to complete the Goal setting and Plan Making sections for another tasks as well independently. Completed simulated voicemail task in which pt listened to realistic voicemails and tasked with answering questions re: information provided. Pt previously expressed he often has difficulty understanding and recalling information form voicemails and phone calls. Education provided re: compensatory strategies to implement, including reducing external distractions, replaying, asking to slow down, self-talk, and taking notes on important information. Pt was able to respond to questions about voicemails with 64% independently. This increased to 100% accuracy given verbal cueing to utilize above strategies. Pt expressed he found compensatory strategies very helpful and plans on implementing them more often. Recommended pt use a notepad or notebook to take notes throughout the day in addition to using his calendar to improve short-term recall of important information. Pt was agreeable to this recommendation. Pt was receptive to CLIENT ADMINISTRATOR recommendations today and expressed understanding of education. He was agreeable to completing home practice. Plan to continue targeting communication strategies, compensatory strategies for executive functioning, and compensatory strategies for short-term memory. Continue at frequency of once a week given pt progress and report. Reviewed with Progress Being Made,Home Exercise Program Patient Patient/Caregiver Excellent Understanding Plan Amount of Therapy 1-2 Months Recommended Frequency of Once a Week Treatment Length of Session 30 Minutes Therapeutic Contents Client Education,Cognitive-Linguistic Training,Home Exercise Program Provided Patient/ Home Exercise Program,Questions/Concerns Caregiver Instruction Therapy Continue with Current Program Recommendations
--- NOTE | 2025-04-28 17:07 | ST.OPTN ---
Visit Care Team Role Provider Type Kimi Ash Family Provider Non-Staff Primary Care Provider Address: [address] [place], [address] Fax: Sylvia Del Rio DO Attending Provider Non-Staff Referring Provider Address: [address] [place], [address] COSMETICS AND TOILETRIES SALESPERSON Treatment Note COSMETICS AND TOILETRIES SALESPERSON Treatment Note Start: 04/10/25 16:16 Freq: Status: Active Protocol: Document 04/28/25 16:17 SS (Rec: 04/28/25 16:21 SS Desktop) Speech Pathology Treatment Note Session Time Visit Start Time 13:45 Visit Stop Time 14:21 Total Visit Minutes 36 Visit Information Visit Number 4 Plan of Care Dates 04/10/25-07/11/25 Insurance [facility] (max 100 PT/OT/ST) Information Setting Treatment Setting Outpatient Care Visit Type Note Type Treatment Note Next Note Type Next Note Type Treatment Note General Information Patient History Pt was previously seen by this COSMETICS AND TOILETRIES SALESPERSON from 01/14/25 to . 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 Per prior evaluation: ?Rodríguez Regan is a 69-year-old male, referred for a speech/language/cognition evaluation by Kimi Ash MD due to concerns regarding symptoms of cognitive difficulty s/p CVA. Pt arrived to the evaluation on time and was accompanied by his spouse, Alysia. Pt was engaged throughout. No medical records available at time of evaluation. COSMETICS AND TOILETRIES SALESPERSON to reach out to [employer] to obtain pertinent records. Pt reported he lives with his spouse. 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 He was hospitalized at [facility] for four days. A week following discharge, he was urged to return by his neurologist, d /t concerns about his blood pressure and further symptoms. Pt also has heart issues, though pt and spouse did not provide specifics. Pt and spouse reported cognitive- communication changes from baseline following CVA.? Subjective Identification Type Name Others Present Family Observations/Patient Pt arrived to the session on time and was accompanied Presentation by his spouse. He was engaged and motivated throughout the session. Objective Short Term Goals 1. Patient will be educated about holistic lifestyle factors that are supported by research to have a positive impact on cognition (ex: sleep, exercise, diet , social engagement). 2. Patient will implement 2 new internal/external compensatory strategies for memory with successful results, per home program report. 3. Patient will increase metacognitive self-awareness as measured by accurately reflecting on task performance after completion in 90% of opportunities in order to increase insight and safety awareness. 4. Patient and family will receive education re: communication strategies and communication partner training and ways to support communication in order to improve pt ability to communicate needs and wants and understand complex information. Imaging Scheduler Goals 1. Patient will complete cognitive communication tasks with independent use of strategies or tools as needed to complete baseline tasks without difficulty. Treatment Activities Facilitated discussion re: pt observations and concerns as well as current function with IADLs. Reviewed use of communication strategies, external memory aids, and progress with xarj-[id number] framework for completing to-do tasks. COSMETICS AND TOILETRIES SALESPERSON provided education re: holistic lifestyle factors that are supported by research to have a positive impact on cognition (ex: sleep, exercise, diet, social engagement). Assessment Patient Response to Good Treatment Rehab Potential Good Impairments Cognitive communication Identified Progress Towards Good Progress Goals Assessment of Improving Overall Progress Assessment of COSMETICS AND TOILETRIES SALESPERSON facilitated discussion re: pt observations and Improvement concerns since the last treatment session. Pt expressed he and spouse have implementing communication strategies at home and have been able to communicate more successfully. They have had minimal breakdowns with use of strategies. Pt also reported he has been taking notes during important appointments and phone conversations. He has been applying principles of Goal- Zvod-Nj-Gzcjvr framework across several to-do tasks at home, including mowing the lawn and scheduling an eye surgery. He expressed it has helped him break down larger tasks into manageable steps and reduce cognitive fatigue. Discussed function with IADLs, such as medication management, financial planning analyst, and running errands, with pt expressing no concerns at this time. Completed Multifactorial Memory Questionnaire to further identify any areas of concerns to inform POC. Pt did not note difficulty with any areas throughout the questionnaire and stated his function was close to baseline. COSMETICS AND TOILETRIES SALESPERSON provided education re: holistic lifestyle factors, including sleep, stress reduction, hearing, exercise, hydration, and diet. Pt reported he is doing well across these areas. Recommended pt continue to implement previously introduced external memory aids as he still requires verbal cueing from spouse to take notes to increase short-term recall of information consistently. He is progressing toward use of GPDR framework and self- monitoring completing of tasks independently. Pt agreeable and will report on progress in next session. He will benefit from 1-2 additional sessions prior to discharge to ensure independent use of strategies/tools as needed to complete baseline tasks without difficulty. Pt was receptive to COSMETICS AND TOILETRIES SALESPERSON recommendations today and expressed understanding of education. He continues to be agreeable to completing home practice. Plan to continue targeting communication strategies, compensatory strategies for executive functioning, and compensatory strategies for short-term memory. Continue at frequency of once a week given pt progress and report. Reviewed with Progress Being Made,Home Exercise Program Patient Patient/Caregiver Excellent Understanding Plan Amount of Therapy 1-2 Months Recommended Frequency of Once a Week Treatment Length of Session 30 Minutes Therapeutic Contents Client Education,Cognitive-Linguistic Training,Home Exercise Program Provided Patient/ Home Exercise Program,Questions/Concerns Caregiver Instruction Therapy Continue with Current Program Recommendations
--- NOTE | 2025-06-04 11:50 | ST-OP ANOTE ---
Physical, Occupational & Speech Therapy At [facility] Speech Therapy Note GRAPHICS MANAGER called pt as pt has not been seen for treatment since 04/28. Left voicemail asking pt to call clinic and schedule additional appointments or discharge if he wishes to discontinue treatment.
--- NOTE | 2025-07-15 11:47 | ST.OPDS ---
Visit Care Team Role Provider Type Kimi Ash Family Provider Non-Staff Primary Care Provider Address: [address] [place], [address] Fax: Sylvia Del Rio DO Attending Provider Non-Staff Referring Provider Address: [address] [place], [address] REWIND OPERATOR Treatment Note REWIND OPERATOR Treatment Note Start: 04/10/25 16:16 Freq: Status: Active Protocol: Document 07/15/25 11:44 SS (Rec: 07/15/25 11:47 SS [email or web address]) Speech Pathology Treatment Note Visit Information Visit Number 4 Plan of Care Dates 04/10/25-07/11/25 Insurance [facility] (max 100 PT/OT/ST) Information Setting Treatment Setting Outpatient Care Visit Type Note Type Discharge Summary General Information Patient History Pt was previously seen by this REWIND OPERATOR from 01/14/25 to . 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 Per prior evaluation: ?Rodríguez Regan is a 69-year-old male, referred for a speech/language/cognition evaluation by Kimi Ash MD due to concerns regarding symptoms of cognitive difficulty s/p CVA. Pt arrived to the evaluation on time and was accompanied by his spouse, Alysia. Pt was engaged throughout. No medical records available at time of evaluation. REWIND OPERATOR to reach out to [employer] to obtain pertinent records. Pt reported he lives with his spouse. 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 He was hospitalized at [facility] for four [facility]. A week following discharge, he was urged to return by his neurologist, d /t concerns about his blood pressure and further symptoms. Pt also has heart issues, though pt and spouse did not provide specifics. Pt and spouse reported cognitive- communication changes from baseline following CVA.? Objective Short Term Goals 1. Patient will be educated about holistic lifestyle factors that are supported by research to have a positive impact on cognition (ex: sleep, exercise, diet , social engagement). 07/15/25: discontinue goal. 2. Patient will implement 2 new internal/external compensatory strategies for memory with successful results, per home program report. 07/15/25: discontinue goal. 3. Patient will increase metacognitive self-awareness as measured by accurately reflecting on task performance after completion in 90% of opportunities in order to increase insight and safety awareness. 07/15/25: discontinue goal. 4. Patient and family will receive education re: communication strategies and communication partner training and ways to support communication in order to improve pt ability to communicate needs and wants and understand complex information. 07/15/25: discontinue goal. Benefit Authorizer Goals 1. Patient will complete cognitive communication tasks with independent use of strategies or tools as needed to complete baseline tasks without difficulty. 07/15/25: discontinue goal. Treatment Activities Pt was seen for 4 treatment sessions. Treatment included education and implementation of communication strategies, external memory aids, and [id number]-[id number]- review framework for completing to-do tasks. REWIND OPERATOR provided education re: holistic lifestyle factors that are supported by research to have a positive impact on cognition (ex: sleep, exercise, diet, social engagement ). Assessment Patient Response to Good Treatment Rehab Potential Good Impairments Cognitive communication Identified Progress Towards Good Progress Goals Assessment of Improving Overall Progress Assessment of As of last treatment session: REWIND OPERATOR facilitated Improvement discussion re: pt observations and concerns since the last treatment session. Pt expressed he and spouse have implementing communication strategies at home and have been able to communicate more successfully. They have had minimal breakdowns with use of strategies. Pt also reported he has been taking notes during important appointments and phone conversations. He has been applying principles of Hlzz-Czmw-Pu-Review framework across several to-do tasks at home, including mowing the lawn and scheduling an eye surgery. He expressed it has helped him break down larger tasks into manageable steps and reduce cognitive fatigue. Discussed function with IADLs, such as medication management, personal financial representative, and running errands, with pt expressing no concerns at this time. Completed Multifactorial Memory Questionnaire to further identify any areas of concerns to inform POC. Pt did not note difficulty with any areas throughout the questionnaire and stated his function was close to baseline. REWIND OPERATOR provided education re: holistic lifestyle factors, including sleep, stress reduction, hearing, exercise, hydration, and diet. Pt reported he is doing well across these areas. Recommended pt continue to implement previously introduced external memory aids as he still requires verbal cueing from spouse to take notes to increase short-term recall of information consistently. He is progressing toward use of GPDR framework and self- monitoring completing of tasks independently. Pt agreeable and will report on progress in next session. He will benefit from 1-2 additional sessions prior to discharge to ensure independent use of strategies/tools as needed to complete baseline tasks without difficulty. Pt was receptive to REWIND OPERATOR recommendations today and expressed understanding of education. He continues to be agreeable to completing home practice. Plan to continue targeting communication strategies, compensatory strategies for executive functioning, and compensatory strategies for short-term memory. Continue at frequency of once a week given pt progress and report. Pt has made good progress with use of communication and memory strategies and as well increase in metacognitive awareness. Pt has not been seen for treatment in 2 months. REWIND OPERATOR called pt with no response. Pt discharged at this time. Reviewed with Progress Being Made,Home Exercise Program Patient Patient/Caregiver Excellent Understanding Plan Amount of Therapy No Further Therapy Recommended Frequency of No Further Therapy Treatment Therapeutic Contents Client Education,Cognitive-Linguistic Training,Home Exercise Program Provided Patient/ Home Exercise Program,Questions/Concerns Caregiver Instruction Therapy Discharge to Home Exercise Program,Discharge from Recommendations Speech Therapy
== END 2025-07-15 13:39 | disposition home or self-care (01) ==
LOC: SP 13:45
PROVIDERS: Family Provider Internal Medicine; PCP Internal Medicine; Referring Provider Psychiatry & Neurology Neurology; Visit Provider Psychiatry & Neurology Neurology
DX: I69.319 Unspecified symptoms and signs involving cognitive functions following cerebral infarction (principal); I69.328 Other speech and language deficits following cerebral infarction
CPT/HCPCS: 92507; 96125